=== PATIENT | female | born 1985 | race Caucasian/White ===

== ENCOUNTER 2019-11-21 08:40 | Observation (INO) ==
[2019-11-21] MEDS ORDERED: DUONEB NEB STA ×2 (08:49→11:27)
--- NOTE | 2019-11-21 08:54 | ED.PDOC ---
General ED Provider: Dr. EVANGELISTA MERCADO MD Chief Complaint: Shortness of Air Stated Complaint: mild to mod short of breath constant today and cough, no fever, hx asthma, given solumedrol by ems, +wheezing, no chest pain Time Seen by Physician: 08:51 Mode of Arrival: Ambulance Information Source: Patient and EMT Nursing and Triage Documentation Reviewed and Agree: Yes Does patient meet sepsis criteria?: No System Inflammatory Response Syndrome: Not Applicable Sepsis Protocol: For patient's 13 years and over: Temp is 96.8 and below OR 101 and greater Pulse >90 BPM Resp >20/minute Acutely Altered Mental Status Are patient's symptoms suggestive of a new infection, such as: -Pneumonia -Skin, Soft Tissue -Endocarditis -UTI -Bone, Joint Infection -Implantable Device -Acute Abdominal Infection -Wound Infection -Meningitis -Blood Stream Catheter Infection -Unknown Respiratory Complaint Exam Asthma Complaint/Exam Onset/Duration: today Symptoms Are: Still present Timing: Constant Initial Severity: Moderate Current Severity: Moderate Character: Reports Productive cough Aggravating: Reports Exertion Alleviating: Reports Inhalers Associated Signs and Symptoms: Denies Fever and Edema Related History: Reports Similar episode Review of Systems Review Of Systems Constitutional: Denies Fever Eyes: Denies Vision change Ears, Nose, Mouth, Throat: Denies Throat pain Respiratory: Reports Cough, Short of air and Wheezing; Denies Stridor Cardiac: Denies Chest pain GI: Denies Abdominal pain Musculoskeletal: Denies Neck pain Skin: Denies Rash and Cyanosis Neurological: Denies Cognitive dysfunction All Other Systems: Other [facility] Medical History (Updated 11/21/19 @ 14:51 by [employer]) Asthma Overactive bladder Tobacco abuse disorder Family History (Updated 11/21/19 @ 14:52 by [employer]) FATHER Hepatitis C virus Mother No problems noted. Social History (Updated 11/21/19 @ 14:58 by [employer]let [employer]) Smoking and tobacco status: Current every day smoker Tobacco: How many years used: 14 Passive smoking exposure: Yes Quit status: considering quitting Alcohol intake: current Alcohol intake frequency: holidays/special occasions only Substance use type: former substance user Date of last use: occasionally smoked marijuana recreationally with friends and marijuana Counseling given: Yes Physical Exam Physical Exam Appearance: Reports Well-appearing Ill-appearing: None Pain Distress: None Eyes: Reports Conjunctiva clear ENT: Reports Oropharynx normal Neck: Supple Respiratory: Reports Airway patent and Wheezes Cardiovascular: Reports RRR Musculoskeletal: Reports ROM intact and No edema Skin: Reports Warm, Dry and Normal color; Denies Cyanotic Neurological: Reports Cranial nerves intact, Alert and Oriented Psychiatric: Reports Affect appropriate Interpretation Radiology Interpretation Radiology Interpretation By: Radiologist Exam Interpreted: CXR Xray Comments: right lung nodule Radiology Interpretation By: Radiologist Exam Interpreted: CT Scan Xray Comments: possible infectious etiology Re-Evaluation Re-Evaluation Time of Re-Evaluation: 11:05 Status: Improved Vital Signs Stable: Yes Appearance: NAD Lungs: Clear Skin: Warm and Dry Neuro: Alert and Oriented X3 Additional Comments: pt desaturated to 88% on RA at disposition, admit d/w Vonda Critical Care Note Critical Care Note Total Time (mins): 0 Course Course Hematology/Chemistry: 11/21/19 09:02 11/21/19 09:02 Orders, Labs, Meds: Lab Review 11/21/19 11/21/19 11/21/19 09:02 09:02 09:02 WBC 12.25 H RBC 4.35 Hgb 14.1 Hct 40.6 MCV 93.3 MCH 32.4 H MCHC 34.7 RDW Coeff of Chaparrita 13.7 Plt Count 453 H Immature Gran % (Auto) 0.2 Neut % (Auto) 61.8 Lymph % (Auto) 16.8 [place] % (Auto) 7.8 Eos % (Auto) 12.4 H Baso % (Auto) 1.0 Immature Gran # (Auto) 0.0 Neut # (Auto) 7.6 H Lymph # (Auto) 2.1 [place] # (Auto) 1.0 Eos # (Auto) 1.5 H Baso # (Auto) 0.1 Puncture Site O2 Saturation ABG pH ABG pCO2 ABG pO2 ABG HCO3 ABG Total CO2 ABG Base Excess Wilber Test FiO2 % Sodium 138.1 Potassium 3.76 Chloride 104.4 Carbon Dioxide 27.5 Anion Gap 9.96 BUN 4.0 L Creatinine 0.61 Estimated GFR (MDRD) 114.00 BUN/Creatinine Ratio 6.55 Glucose 122.2 H Lactic Acid 1.40 Calcium 9.15 Total Bilirubin 1.16 AST 33.7 ALT 23.2 Alkaline Phosphatase 81.3 Total Protein 7.02 Albumin 4.01 Globulin 3.01 Albumin/Globulin Ratio 1.33 Serum , Qual 11/21/19 11/21/19 09:02 11:50 WBC RBC Hgb Hct MCV MCH MCHC RDW Coeff of Chaparrita Plt Count Immature Gran % (Auto) Neut % (Auto) Lymph % (Auto) [place] % (Auto) Eos % (Auto) Baso % (Auto) Immature Gran # (Auto) Neut # (Auto) Lymph # (Auto) [place] # (Auto) Eos # (Auto) Baso # (Auto) Puncture Site R brach O2 Saturation 97.0 ABG pH 7.449 ABG pCO2 31.7 L ABG pO2 82.0 L ABG HCO3 22.0 ABG Total CO2 23 ABG Base Excess -2 Wilber Test + FiO2 % 21.0 Sodium Potassium Chloride Carbon Dioxide Anion Gap BUN Creatinine Estimated GFR (MDRD) BUN/Creatinine Ratio Glucose Lactic Acid Calcium Total Bilirubin AST ALT Alkaline Phosphatase Total Protein Albumin Globulin Albumin/Globulin Ratio Serum , Qual Negative Orders Category Date Time Status ABG DRAW REQUEST Stat CARDIO 11/21/19 11:27 Completed ACTIVITY .BR with BRP CARE 11/21/19 11:49 Active INTAKE & OUTPUT Q8HR CARE 11/21/19 11:49 Active NPO REMINDER: IMAGING ONCE CARE 11/21/19 09:49 Completed VITAL SIGNS Q8HR CARE 11/21/19 11:49 Completed REGULAR DIET DIETARY 11/21/19 Lunch Ordered ED APPLY O2 .ONCE EMERGENCY 11/21/19 08:49 Active ABG Stat LAB 11/21/19 11:50 Completed BLOOD CULTURE Stat LAB 11/21/19 12:53 Received CBC W/ AUTO DIFF Stat LAB 11/21/19 09:02 Completed COMPREHENSIVE METABOLIC PANEL Stat LAB 11/21/19 09:02 Completed COVID19, PCR IDPH Stat LAB 11/21/19 11:55 Received LACTIC ACID Stat LAB 11/21/19 09:02 Completed SERUM Stat LAB 11/21/19 09:02 Completed Acetaminophen [Tylenol] MEDS 11/21/19 11:49 Active 650 mg PO Q4H PRN Albuterol Inhaler(with Spacer) [Ventolin Hfa (Per Puff- MEDS 11/21/19 09:02 Discontinued with Spacer)] 2 puff IH ONCE STA Ipratropium/Albuterol Neb [Duoneb] MEDS 11/21/19 08:49 Discontinued 3 ml NEB ONCE STA Ipratropium/Albuterol Neb [Duoneb] MEDS 11/21/19 11:27 Discontinued 3 ml NEB ONCE STA Levofloxacin/D5w [Levaquin 500 mg/100 ml D5w] MEDS 11/21/19 11:35 Discontinued 500 mg in 100 ml IV ONCE Levofloxacin/D5w [Levaquin 750 mg/150 ml D5w] MEDS 11/22/19 09:00 Active 750 mg in 150 ml IV DAILY RESUSCITATION STATUS Routine OTHERS 11/21/19 11:49 Ordered CHEST, 1V AP ONLY Stat RADS 11/21/19 08:[address] CHEST W/CONTRAST Stat RADS 11/21/19 09:49 Completed Medications Generic Name Dose Route Start Last Admin Trade Name Freq PRN Reason Stop Dose Admin Acetaminophen 650 mg 11/21/19 11:49 11/21/19 14:21 Tylenol PO 650 mg Q4H PRN Administration Mild Pain Albuterol Sulfate 2 puff 11/21/19 20:00 11/21/19 14:30 Ventolin Hfa (Per Puff-With Spacer) IH 2 puff RTQID NIK Administration Albuterol Sulfate 2 puff 11/21/19 18:03 11/21/19 18:18 Ventolin Hfa (Per Puff-With Spacer) IH 2 puff Q4-6H PRN Administration SHORTNESS OF AIR Enoxaparin Sodium 40 mg 11/21/19 16:00 11/21/19 16:57 Lovenox SUBCUT 40 mg DAILY NIK Administration Guaifenesin/Dextromethorphan 1 each 11/21/19 12:30 11/21/19 14:21 Mucinex Dm Er 600-30 Mg Tablet PO 1 each Q12HR NIK Administration Levofloxacin/Dextrose 750 mg in 150 mls @ 100 mls/hr 11/22/19 09:00 Levaquin 750 Mg/150 Ml D5w IV 11/22/19 09:00 DAILY NIK Levofloxacin/Dextrose 500 mg in 100 mls @ 100 mls/hr 11/22/19 09:00 Levaquin 500 Mg/100 Ml D5w IV 11/25/19 08:59 DAILY NIK Lorazepam 0.5 mg 11/21/19 18:05 Ativan PO BID PRN Anxiety, SOA Nicotine 1 patch 11/22/19 09:00 Nicoderm 14 Mg TD DAILY NIK Ondansetron HCl 8 mg 11/21/19 12:26 Zofran Odt PO Q8H PRN Nausea / Vomiting Discontinued Medications Generic Name Dose Route Start Last Admin Trade Name Freq PRN Reason Stop Dose Admin Albuterol Sulfate 2 puff 11/21/19 09:02 11/21/19 09:07 Ventolin Hfa (Per Puff-With Spacer) IH 11/21/19 09:03 2 puff ONCE STA Administration Albuterol/Ipratropium 3 ml 11/21/19 08:49 11/21/19 10:03 Duoneb NEB 11/21/19 08:50 Not Given ONCE STA Albuterol/Ipratropium 3 ml 11/21/19 11:27 11/21/19 12:29 Duoneb NEB 11/21/19 11:28 Not Given ONCE STA Levofloxacin/Dextrose 500 mg in 100 mls @ 100 mls/hr 11/21/19 11:35 11/21/19 12:20 Levaquin 500 Mg/100 Ml D5w IV 11/21/19 12:34 100 mls/hr ONCE STA Administration Magnesium Sulfate/Dextrose 2 gm in 200 mls @ 100 mls/hr 11/21/19 15:12 11/21/19 15:52 Magnesium Sulfate 1 Gm/100 Ml D5w IV 11/21/19 17:11 100 mls/hr ONCE STA Administration Ketorolac Tromethamine 15 mg 11/21/19 15:32 11/21/19 16:57 Toradol IVP 11/21/19 15:33 15 mg ONCE STA Administration Vital Signs: Temp Pulse Resp BP Pulse Ox 11/21/19 08:41 97.8 F 94 H 28 H 120/68 96 Discharge Plan Discharge Patient Disposition: PLACED OBSERVATION Discharge Problem: Hypoxia Asthma Qualifiers: Asthma severity: mild Asthma persistence: intermittent Asthma complication type: with acute exacerbation Qualified Code(s): J45.21 - Mild intermittent asthma with (acute) exacerbation Instructions: Asthma (ED) ED Provider: EVANGELITSA MERCADO Condition: Stable Discharge Date/Time: 11/21/19 13:00
[2019-11-21] MEDS ORDERED: VENTOLIN HFA (PER PUFF-WITH SPACER) IH STA (09:02)
[2019-11-21 09:07] LABS: HEMATOCRIT 40.6 % (37.0-47.0)
--- NOTE | 2019-11-21 09:53 | DI ---
EXAM: Chest one view HISTORY: Cough COMPARISON: None TECHNIQUE: Single view of the chest was performed FINDINGS: Questionable right apical nodular opacity may have lucency with additional questionable no dular opacity in the right mid lung. There is no pleural effusion or pneumothorax. The heart is nor mal in size. The mediastinal contour is normal. There are no acute abnormalities of the bones. IMPRESSION: Questionable nodular opacities in the right lung, with a cavitary nodule not excluded. Recommend correlation with CT chest. Finding called to Dr. Aden 9:48 a.m. 11/20/2024
--- NOTE | 2019-11-21 10:40 | CT ---
EXAM: CT THORAX HISTORY: Lung nodules. TECHNIQUE: CT thorax with intravenous contrast. Multiplanar images presented. FINDINGS: No comparison CT. Review of recent radiography was made. Normal heart size. No pericardial effusion. Thoracic aorta is within normal limits. There are a fe w scattered small mediastinal and right hilar lymph nodes which are sub centimeter in size and nonspe cific. Lungs reveal a focal region of pleuroparenchymal thickening posteriorly in the right apex which appea rs to be a density seen on the recent radiography. Etiology of the thickening is uncertain although scarring or mild pneumonia could be considered. Less likely early neoplasia in a patient of this age . There is a tiny 4.1 mm noncalcified nodule in the posterior left lung base which is indeterminate. There is some hazy density in the medial left lung base which could represent subtle infiltrate or scarring. There is no central vascular congestion, pleural fluid or pneumothorax. Bones are within normal limits IMPRESSION: 1. Focal pleural thickening in the right apex and a tiny nodule in the right lower lobe. In a patie nt this age, these are probably infectious or postinflammatory foci rather than neoplastic. 2. A few sub centimeter right hilar and mediastinal lymph nodes are nonspecific.
[2019-11-21] MEDS ORDERED: LEVAQUIN 500 MG/100 ML D5W 500 MG/100 ML BAG IV STA (11:35)
[2019-11-21] MEDS ORDERED: ZOFRAN ODT PO PRN (12:26)
[2019-11-21 13:57] VITALS: BMI 31.6
[2019-11-21] MEDS: MUCINEX DM ER 600-30 MG TABLET PO SCH ×2 (14:21→20:37)
[2019-11-21] MEDS: TYLENOL PO PRN (14:21)
[2019-11-21] MEDS: VENTOLIN HFA (PER PUFF-WITH SPACER) IH SCH ×2 (14:30→19:50)
--- NOTE | 2019-11-21 15:06 | PCM ---
Chief Complaint Chief Complaint: worsening shortness of breath History of Present Illness History of Present Illness: Ms Traore is a 34 year old female with asthma who presents to emergency with c/o feeling short of breath. Breathing worsening even with her inhaler and nebulizer treatments at home. IN ED room air ABG 7.44 PCO2 31.7 PO2 82.0 HCO3 22.0; CXR with questionable nodular opacity right lung recommend CT; CT chest wo with focal region of thickening right posterior apex questionable scarring or mild pneumonia; wbc 12.25, lactate 1.4; sat 91% on 2 lpm nc. Pt deemed PUI due to presentation and swab for covid 19 is taken, BCx obtained, neg preg test. Pt admitted to hospital medicine for further care. Pt is interviewed and examined in isolation room on medr floor. Pt seated on bed, tripoding visibly struggling to breath. Pt stated breathing has been getting worse over last 2 - 3 days. She has hx of asthma and continues to smoke. she has albuteral inhaler and nebulizer treatments. She states had refill for her spiriva but wasn't able to pick it up yet. She states "I went through a whole thing of albuterol in my machine thinking it would get better but it just kept getting worse so I came to the hospital". Pt states that she was discharge from [facility] about a month ago with oxygen. She got the machine, but due to insurance issues and feeling better, she sent the oxygen back. PCP Ngozi Oates at [facility] in [place]. Review of Systems Constitutional: Denies fever, chills, weakness, sweats, fatigue, loss of appetite and other Eyes: Denies blurred vision, double-vision, discharge, itching, pain, redness, photophobia and other Nose: Denies bleeding, congestion, discharge and other Throat: Denies pain, swelling, voice change and other Mouth: Denies bleeding, pain, swelling and other Respiratory: Reports shortness of air and pain with breathing Cardiovascular: Denies chest pain, left arm pain, diaphoresis, PND, orthopnea, edema, palpitations, syncope and other Gastrointestinal: Denies abdominal pain, nausea, vomiting, diarrhea, melena, hematemesis, hematochezia, dysphagia, constipation and other Genitourinary: Denies dysuria, hematuria, frequency, incontinence, flank pain, vaginal discharge, abnormal bleeding, pelvic pain and other Neurological: Denies headache, dizziness, seizure, numbness, weakness, speech difficulty, problems with walking, tremor, fainting and other Musculoskeletal: Denies pain, swelling in joints and other Skin: Denies rash, pruritus, lacerations, wounds, bruising and other Hematology: Denies easy bruising, easy bleeding, swollen glands and other Endocrine: Denies weight changes, cold intolerance, heat intolerance, excessive thirst, excessive hunger, polyuria and other Psychiatric: Reports anxiety Habits: Reports tobacco use Allergies Allergies Allergy/AdvReac Type Severity Reaction Status Date / Time No Known Allergies Allergy Unverified 11/21/19 08:45 PFSH Medical History (Updated 11/21/19 @ 14:51 by [employer]) Asthma Overactive bladder Tobacco abuse disorder Family History (Updated 11/21/19 @ 14:52 by [employer]) FATHER Hepatitis C virus Mother No problems noted. Social History (Updated 11/21/19 @ 14:58 by [employer]) Smoking and tobacco status: Current every day smoker Tobacco: How many years used: 14 Passive smoking exposure: Yes Quit status: considering quitting Alcohol intake: current Alcohol intake frequency: holidays/special occasions only Substance use type: former substance user Date of last use: occasionally smoked marijuana recreationally with friends and marijuana Counseling given: Yes Medications Medications: Medications Generic Name Dose Route Start Last Admin Trade Name Freq PRN Reason Stop Dose Admin Acetaminophen 650 mg 11/21/19 11:49 11/21/19 14:21 Tylenol PO 650 mg Q4H PRN Administration Mild Pain Guaifenesin/Dextromethorphan 1 each 11/21/19 12:30 11/21/19 14:21 Mucinex Dm Er 600-30 Mg Tablet PO 1 each Q12HR NIK Administration Levofloxacin/Dextrose 750 mg in 150 mls @ 100 mls/hr 11/22/19 09:00 Levaquin 750 Mg/150 Ml D5w IV 11/25/19 08:59 DAILY NIK Ondansetron HCl 8 mg 11/21/19 12:26 Zofran Odt PO Q8H PRN Nausea / Vomiting Body Composition Height: 5 ft 2 in Weight: 172 lb 9.951 oz Body Mass Index (BMI): 31.6 Vital Signs Temperature: 98.1 F Pulse Rate: 92 Respiratory Rate: 18 Blood Pressure: 120/68 O2 Sat by Pulse Oximetry: 91 Physical Examination Ill-appearing: Moderate Pain Distress: Mild Eyes: Reports JOSE, EOMI and Conjunctiva clear ENT: Reports Oropharynx normal Neck: Supple Respiratory: Reports Airway patent (very tight), Wheezes and Retractions Cardiovascular: Reports RRR and Pulses normal GI/: Reports Soft, Nontender, Bowel sounds normal and No Organomegaly Musculoskeletal: Reports Normal strength and ROM intact Skin: Reports Warm, Dry and Normal color Neurological: Reports Cranial nerves intact, Alert and Oriented Psychiatric: Reports Anxious Lab/Tests/Diagnostic Imaging Lab/Tests/Diagnostic Imaging: Lab Review 11/21/19 11/21/19 11/21/19 09:02 09:02 09:02 WBC 12.25 H RBC 4.35 Hgb 14.1 Hct 40.6 MCV 93.3 MCH 32.4 H MCHC 34.7 RDW Coeff of Chaparrita 13.7 Plt Count 453 H Immature Gran % (Auto) 0.2 Neut % (Auto) 61.8 Lymph % (Auto) 16.8 [place] % (Auto) 7.8 Eos % (Auto) 12.4 H Baso % (Auto) 1.0 Immature Gran # (Auto) 0.0 Neut # (Auto) 7.6 H Lymph # (Auto) 2.1 [place] # (Auto) 1.0 Eos # (Auto) 1.5 H Baso # (Auto) 0.1 Puncture Site O2 Saturation ABG pH ABG pCO2 ABG pO2 ABG HCO3 ABG Total CO2 ABG Base Excess Wilber Test FiO2 % Sodium 138.1 Potassium 3.76 Chloride 104.4 Carbon Dioxide 27.5 Anion Gap 9.96 BUN 4.0 L Creatinine 0.61 Estimated GFR (MDRD) 114.00 BUN/Creatinine Ratio 6.55 Glucose 122.2 H Lactic Acid 1.40 Calcium 9.15 Total Bilirubin 1.16 AST 33.7 ALT 23.2 Alkaline Phosphatase 81.3 Total Protein 7.02 Albumin 4.01 Globulin 3.01 Albumin/Globulin Ratio 1.33 Serum , Qual 11/21/19 11/21/19 09:02 11:50 WBC RBC Hgb Hct MCV MCH MCHC RDW Coeff of Chaparrita Plt Count Immature Gran % (Auto) Neut % (Auto) Lymph % (Auto) [place] % (Auto) Eos % (Auto) Baso % (Auto) Immature Gran # (Auto) Neut # (Auto) Lymph # (Auto) [place] # (Auto) Eos # (Auto) Baso # (Auto) Puncture Site R brach O2 Saturation 97.0 ABG pH 7.449 ABG pCO2 31.7 L ABG pO2 82.0 L ABG HCO3 22.0 ABG Total CO2 23 ABG Base Excess -2 Wilber Test + FiO2 % 21.0 Sodium Potassium Chloride Carbon Dioxide Anion Gap BUN Creatinine Estimated GFR (MDRD) BUN/Creatinine Ratio Glucose Lactic Acid Calcium Total Bilirubin AST ALT Alkaline Phosphatase Total Protein Albumin Globulin Albumin/Globulin Ratio Serum , Qual Negative Orders Category Date Time Status ADMIT OBSERVATION [PLACE PATIENT OBSERVATION] .TO ADMISSION 11/21/19 12:08 Active MEDSURG (MONITORED BED) ABG DRAW REQUEST Stat CARDIO 11/21/19 11:27 Completed OXYGEN Routine CARDIO 11/21/19 12:26 Active ACTIVITY .BR with BRP CARE 11/21/19 11:49 Active INTAKE & OUTPUT Q8HR CARE 11/21/19 11:49 Active NPO REMINDER: IMAGING ONCE CARE 11/21/19 09:49 Completed TELEMETRY MONITORING TELE CARE 11/21/19 12:09 Active VITAL SIGNS Q8HR CARE 11/21/19 11:49 Completed VITAL SIGNS Q8HR CARE 11/21/19 12:16 Completed REGULAR DIET DIETARY 11/21/19 Lunch Ordered ED APPLY O2 .ONCE EMERGENCY 11/21/19 08:49 Active ABG Stat LAB 11/21/19 11:50 Completed BLOOD CULTURE Stat LAB 11/21/19 12:53 Received CBC W/ AUTO DIFF Stat LAB 11/21/19 09:02 Completed COMPREHENSIVE METABOLIC PANEL Stat LAB 11/21/19 09:02 Completed COVID19, PCR IDPH Stat LAB 11/21/19 11:55 Received LACTIC ACID Stat LAB 11/21/19 09:02 Completed SERUM Stat LAB 11/21/19 09:02 Completed Acetaminophen [Tylenol] MEDS 11/21/19 11:49 Active 650 mg PO Q4H PRN Albuterol Inhaler(with Spacer) [Ventolin Hfa (Per Puff- MEDS 11/21/19 09:02 Discontinued with Spacer)] 2 puff IH ONCE STA Guaifenesin/Dextromethorphan [Mucinex Dm ER 600-30 mg MEDS 11/21/19 12:30 Active Tablet] 1 each PO Q12HR Ipratropium/Albuterol Neb [Duoneb] MEDS 11/21/19 08:49 Discontinued 3 ml NEB ONCE STA Ipratropium/Albuterol Neb [Duoneb] MEDS 11/21/19 11:27 Discontinued 3 ml NEB ONCE STA Levofloxacin/D5w [Levaquin 500 mg/100 ml D5w] MEDS 11/21/19 11:35 Discontinued 500 mg in 100 ml IV ONCE Levofloxacin/D5w [Levaquin 750 mg/150 ml D5w] MEDS 11/22/19 09:00 Active 750 mg in 150 ml IV DAILY Ondansetron [Zofran Odt] MEDS 11/21/19 12:26 Active 8 mg PO Q8H PRN RESUSCITATION STATUS Routine OTHERS 11/21/19 11:49 Ordered CHEST, 1V AP ONLY Stat RADS 11/21/19 08:[address] CHEST W/CONTRAST Stat RADS 11/21/19 09:49 Completed Medications Generic Name Dose Route Start Last Admin Trade Name Freq PRN Reason Stop Dose Admin Acetaminophen 650 mg 11/21/19 11:49 11/21/19 14:21 Tylenol PO 650 mg Q4H PRN Administration Mild Pain Guaifenesin/Dextromethorphan 1 each 11/21/19 12:30 11/21/19 14:21 Mucinex Dm Er 600-30 Mg Tablet PO 1 each Q12HR NIK Administration Levofloxacin/Dextrose 750 mg in 150 mls @ 100 mls/hr 11/22/19 09:00 Levaquin 750 Mg/150 Ml D5w IV 11/25/19 08:59 DAILY NIK Ondansetron HCl 8 mg 11/21/19 12:26 Zofran Odt PO Q8H PRN Nausea / Vomiting Discontinued Medications Generic Name Dose Route Start Last Admin Trade Name Freq PRN Reason Stop Dose Admin Albuterol Sulfate 2 puff 11/21/19 09:02 11/21/19 09:07 Ventolin Hfa (Per Puff-With Spacer) IH 11/21/19 09:03 2 puff ONCE STA Administration Albuterol/Ipratropium 3 ml 11/21/19 08:49 11/21/19 10:03 Duoneb NEB 11/21/19 08:50 Not Given ONCE STA Albuterol/Ipratropium 3 ml 11/21/19 11:27 11/21/19 12:29 Duoneb NEB 11/21/19 11:28 Not Given ONCE STA Levofloxacin/Dextrose 500 mg in 100 mls @ 100 mls/hr 11/21/19 11:35 11/21/19 12:20 Levaquin 500 Mg/100 Ml D5w IV 11/21/19 12:34 100 mls/hr ONCE STA Administration Assessment (1) Asthma: Status: Acute Code(s): J45.909 - Unspecified asthma, uncomplicated SNOMED Code(s): 566021750 Qualifiers: Asthma complication type: with acute exacerbation Asthma persistence: intermittent Asthma severity: mild Qualified Code(s): J45.21 - Mild intermittent asthma with (acute) exacerbation (2) Hypoxia: Status: Acute Code(s): R09.02 - Hypoxemia SNOMED Code(s): 979007731 (3) Tobacco abuse disorder: Status: Acute Code(s): Z72.0 - Tobacco use SNOMED Code(s): 82000813 (4) Tobacco abuse counseling: Status: Acute Code(s): Z71.6 - Tobacco abuse counseling SNOMED Code(s): 493965262 Plan Plan: acute hypoxic respiratory failure -pt cont to have moderate to severe difficulty with breathing on nasal cannula at 3lpm; will try her on vapotherm; monitor -pt may need to cont oxygen at home; CM consult to look into assistance. -repeat ABG for worsening sxs; if requires intubation will need to be transferred asthma exarcerbation -not able to give steroids or nebs due to CDC guidelines for covid 19 -cont albuterol MDI, spiriva -give magnesium 2gm IV stat x 1 -mucinex DM -BCx pending; covid 19 test results pending -toradol x 1 IV for c/o sorenss of chest from cough community acquired pneumona -cont levofloxacin started in Ed tobacco abuse/dependence -counseled on smoking cigarettes, smokeless tobacco, and marijuana use with hx asthma -pt will discuss quitting techniques with her pcp after discharge -nicotine patch available if needed DVT PPx: lovenox GI PPx: pepcid CODE: full
[2019-11-21] MEDS ORDERED: MAGNESIUM SULFATE 1 GM/100 ML D5W 2 GM/200 ML BAG IV STA (15:12)
[2019-11-21] MEDS ORDERED: TORADOL IVP STA (15:32)
[2019-11-21] MEDS: LOVENOX SUBCUT SCH (16:57)
[2019-11-21] MEDS: VENTOLIN HFA (PER PUFF-WITH SPACER) IH PRN (18:18)
[2019-11-21] MEDS: ATIVAN PO PRN (20:37)
[2019-11-22] MEDS: VENTOLIN HFA (PER PUFF-WITH SPACER) IH PRN (03:30)
[2019-11-22] MEDS: VENTOLIN HFA (PER PUFF-WITH SPACER) IH SCH ×4 (05:40→19:39)
[2019-11-22 07:51] LABS: HEMATOCRIT 40.1 % (37.0-47.0)
[2019-11-22] MEDS ORDERED: LEVAQUIN 750 MG/150 ML D5W 750 MG/150 ML BAG IV SCH (09:00)
[2019-11-22] MEDS: MUCINEX DM ER 600-30 MG TABLET PO SCH ×2 (09:54→20:30)
[2019-11-22] MEDS: ATIVAN PO PRN ×2 (09:54→19:31)
[2019-11-22] MEDS: LOVENOX SUBCUT SCH (09:55)
[2019-11-22] MEDS: LEVAQUIN 500 MG/100 ML D5W 500 MG/100 ML BAG IV SCH (09:55)
[2019-11-22] MEDS: NICODERM 14 MG TD SCH (09:55)
[2019-11-22] MEDS: TYLENOL PO PRN (12:21)
[2019-11-23] MEDS: VENTOLIN HFA (PER PUFF-WITH SPACER) IH PRN (03:08)
[2019-11-23] MEDS: VENTOLIN HFA (PER PUFF-WITH SPACER) IH SCH ×3 (05:00→14:11)
[2019-11-23 05:21] LABS: HEMATOCRIT 42.1 % (37.0-47.0)
[2019-11-23] MEDS: LEVAQUIN 500 MG/100 ML D5W 500 MG/100 ML BAG IV SCH (08:46)
[2019-11-23] MEDS: LOVENOX SUBCUT SCH (08:47)
[2019-11-23] MEDS: MUCINEX DM ER 600-30 MG TABLET PO SCH (08:47)
[2019-11-23] MEDS: NICODERM 14 MG TD SCH (08:52)
[2019-11-23 10:06] VITALS: BP 117/78; TEMP 98.2
--- NOTE | 2019-11-23 12:15 | PCM.DC ---
Final Diagnosis: Asthma (1) Asthma: Status: Acute Code(s): J45.909 - Unspecified asthma, uncomplicated SNOMED Code(s): 632427320 Qualifiers: Asthma complication type: with acute exacerbation Asthma persistence: intermittent Asthma severity: mild Qualified Code(s): J45.21 - Mild intermittent asthma with (acute) exacerbation (2) Hypoxia: Status: Acute Code(s): R09.02 - Hypoxemia SNOMED Code(s): 508864088 (3) Tobacco abuse disorder: Status: Acute Code(s): Z72.0 - Tobacco use SNOMED Code(s): 86947802 (4) Tobacco abuse counseling: Status: Acute Code(s): Z71.6 - Tobacco abuse counseling SNOMED Code(s): 389297824 Reason for Hospitalization: Hypoxia Prognosis at Discharge: Good. Pt needed education on how to properly use her Albuterol NEBs. Pt states she used one box over a 3 day period. Also, Pt re-qu alified for Home O2 with the 3 step test performed by respiratory. Pt oxygen dropped to 88% during the testing without O2 and performed better with 2 L/min NC. Condition at Discharge: Stable Medications at Discharge: Ambulatory Orders Medication Instructions Recorded albuterol sulfate 1.25 mg INHALATION Q4-6H PRN 11/21/19 albuterol sulfate 2 puff IH 6XD PRN #6.7 gm 11/21/19 oxybutynin chloride 5 mg PO BID 11/21/19 tiotropium bromide [Spiriva with 1 cap INHALATION DAILY 11/21/19 HandiHaler] Education Provided to Patient and Family: Asthma, proper use of Albuterol Follow-ups: PCP in 3-5 days. Discharge Disposition: Home Hospital Course: Pt has improved during her hospitalization. Pt is not tri poding, she is able to talk in complete sentences without SOB or increased WOB. Pt states that she is back to her usual self. Plan: Home self care with supplemental Home O2. Short course of steroids, continue home medications. F/U with PCP in 3-5 days +/-.
== END 2019-11-23 14:30 | disposition home or self-care (01) ==
LOC: ED 08:40 → SCU 08:40
PROVIDERS: ADMIT Nurse Practitioner Family; ATTEND Nurse Practitioner Family
DX: F17.210 Nicotine dependence, cigarettes, uncomplicated; R91.8 Other nonspecific abnormal finding of lung field; J45.21 Mild intermittent asthma with (acute) exacerbation; R09.02 Hypoxemia; Z03.818 Encounter for observation for suspected exposure to other biological agents ruled out; Z71.6 Tobacco abuse counseling; R05 Cough; R06.02 Shortness of breath